=== PATIENT | female | born 1955 | race Caucasian/White ===

== ENCOUNTER 2018-05-17 23:58 | Emergency (ER) | payer SELFPAY ==
[2018-05-18] MEDS ORDERED: Ondansetron PF 4 MG/2 ML Vial ONE (00:34)
[2018-05-18] MEDS ORDERED: Morphine 4 MG/ML VIAL ONE (00:34)
[2018-05-18] MEDS ORDERED: Ketorolac Tromethamine 30 MG/ML VIAL ONE (00:45)
[2018-05-18 00:53] LABS: #Basophils 0.1 thou/uL (0.0-0.2); #Eosinphils 0.2 thou/uL (0.0-0.7); #Lymphocytes 1.7 thou/uL (1.20-3.40); #Monocytes 0.3 thou/uL (0.11-0.59); #Neutrophils 2.2 thou/uL (1.40-6.50); %Basophils 1.4 % (0.0-1.0); %Eosinophils 3.4 % (0.0-10.0); %Lymphocytes 38.2 % (21.0-51.0); %Monocytes 7.2 % (0.0-10.0); %Neutrophils 49.8 % (42.0-75.0); Hemoglobin 14.9 g/dL (12.0-16.0); Mean Corpuscular Hemoglobin 32.7 pg (27.0-31.0); Mean Corpuscular Volume 99.1 fL (78.0-98.0); Mean Platelet Volume 8.1 fL (7.4-10.4); Platelet Count 233 thou/uL (130-400); RBC Distribution Width 11.8 % (11.5-14.5); Red Blood Cell (RBC) Count 4.54 mill/uL (4.20-5.40); White Blood Cell (WBC) Count 4.5 thou/uL (4.8-10.8)
[2018-05-18 01:13] LABS: ALT (SGPT) 13 U/L (8-55); AST (SGOT) 19 U/L (5-34); Albumin 5.2 g/dL (3.4-4.8); Alkaline Phosphatase 105 U/L (40-150); Anion Gap 14 mmol/L (10-20); BUN (Urea Nitrogen) 17 mg/dL (9.8-20.1); Bilirubin, Total 0.2 mg/dL (0.2-1.2); CK (CPK) 84 U/L (29-168); Calc. Creatinine Clearance 0 mL/min (70-130); Calcium 10.1 mg/dL (7.8-10.44); Carbon Dioxide 27 mmol/L (23-31); Chloride 106 mmol/L (98-107); Estimated GFR-MDRD 76; Globulin 3.2 g/dL (2.4-3.5); Glucose 94 mg/dL (80-115); Lipase 18 U/L (8-78); Potassium 4.3 mmol/L (3.5-5.1); Protein, Total 8.4 g/dL (6.0-8.3); Sodium 143 mmol/L (136-145)
[2018-05-18 01:17] LABS: CKMB 2.7 ng/mL (0-6.6); Troponin I Less than 0.010 ng/mL (< 0.028)
[2018-05-18 01:22] LABS: Bilirubin Negative (Negative); Blood, Urine Negative (Negative); Clarity CLEAR (Clear); Glucose, Urine (Dipstick) Negative (Negative); Leukocyte Negative (Negative); Nitrite Negative (Negative); Protein, Urine (Dipstick) Negative (Neg-Trace); Specific Gravity, Urine 1.009 (1.002-1.036); Urobilinogen 0.2 mg/dL (0.2-1.0)
[2018-05-18] MEDS ORDERED: Dicyclomine 20 MG TAB ONE (01:36)
--- NOTE | 2018-05-18 07:40 | CT ---
ABDOMEN CT WITHOUT CONTRAST PELVIC CT WITHOUT CONTRAST: Date: 05/18/18 HISTORY: Stabbing abdominal pain since 7:30 this evening. Pain radiates into the lower back and right groin. COMPARISON: None. FINDINGS: ABDOMEN CT: Minimal atelectasis and scarring in the lingula. Heart size is within normal limits. No pericardial e ffusion. Visualized aorta has a normal caliber. There is mild atherosclerosis of the infrarenal abdom inal aorta. Gallbladder is grossly unremarkable. 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 Limited evaluation of the solid organs by the lack of IV contrast. Grossly, no solid organ abnormalit y. No gastrohepatic, retrocrural, or periportal lymphadenopathy. Decreased intra-abdominal fat limits evaluation for inflammatory change. No definite mesenteric mass, lymphadenopathy, free air, or free fluid. Limited evaluation of the alimentary canal by the lack of oral contrast. Gastric mucosa is unremarkab le. Duodenum and multiple small bowel loops are noted. Some of the small bowel loops are borderline p rominent and are fluid-filled. The possibility of an ileus or partial obstructive process cannot be c ompletely excluded. Clinical correlation is essential. The ileocecal junction appears to be grossly u nremarkable. There is some fecalization of the distal ileum which is nonspecific. Findings may be due to incompetent ileocecal valve. Appendix is difficult to appreciate on the examination. No obvious i nflammation at the cecal apex. There is a significant amount of fecal material throughout the colon. Correlate clinically for constipation. Bilaterally, no perinephric fat stranding or nephrolithiasis. There is mild dilatation of the right i ntrarenal collecting system. There is no evidence of an obstructing calculus in the right intrarenal collecting system. The visualized right ureter is also normal in caliber. No definite hydroureter, pe riureteral fat stranding, or ureterolithiasis. No definite calcifications along the expected course o f the right ureter. PELVIC CT: Urinary bladder is unremarkable. No obvious calcifications within the urinary bladder. Hysterectomy c hanges are noted. No pelvic mass, lymphadenopathy, free air, or free fluid. No lytic or blastic lesions in the osseous structures. IMPRESSION: 1. No evidence of an obstructing calculus. There appears to be mild right-sided hydronephrosis. Cordell elate with urinalysis. Consider nonemergent IVP for further evaluation. 2. Slightly prominent small bowel loops, predominantly in the left hemiabdomen. Correlate for early or partial obstructive process. 3. Significant amount of fecal material throughout the colon. Correlate for constipation. POS: CRUZITO
--- NOTE | 2018-05-18 07:47 | RAD ---
PA AND LATERAL CHEST: Date: 05/18/18 INDICATION: Chest pain. COMPARISON: None. FINDINGS: Lungs are hyperinflated, but clear. Heart size is mildly prominent. Pulmonary vasculature is within n ormal limits. No pleural effusion or pneumothorax evident. No acute osseous abnormality is evident. IMPRESSION: Hyperinflation and mild cardiomegaly. No air space consolidation evident. POS: BH
--- NOTE | 2018-05-30 16:11 | EKG ---
Test Reason : ABD PAIN Blood Pressure : / mmHG Vent. Rate : 068 BPM Atrial Rate : 068 BPM P-R Int : 138 ms QRS Dur : 080 ms QT Int : 420 ms P-R-T Axes : 094 060 067 degrees QTc Int : 446 ms Normal sinus rhythm Normal ECG Confirmed by PIYUSH SONG ([id number]), art editor JAELYN MCGOWAN ([id number] on 05/30/2018 4:10:47 PM Referred By: Confirmed By:PIYUSH SONG
== END 2018-05-18 01:57 | disposition home or self-care (01) ==
LOC: ERS 23:58
DX: R10.9 Unspecified abdominal pain (principal); Z71.6 Tobacco abuse counseling; G43.909 Migraine, unspecified, not intractable, without status migrainosus; F41.9 Anxiety disorder, unspecified; F17.210 Nicotine dependence, cigarettes, uncomplicated; Z79.899 Other long term (current) drug therapy
CPT/HCPCS: 71046; 74176; 80053; 81003; 82550; 82553; 83690; 84484; 85025; 93005; 96374; 96375; J1885; J2270; J2405

== ENCOUNTER 2020-06-02 09:22 | Emergency (ER) | payer MEDICARE ==
--- NOTE | 2020-06-02 10:28 | RAD ---
Exam:Left knee 4 HISTORY: Pain and injury. Fall. COMPARISON: None FINDINGS: No joint effusion. No fracture or malalignment. Joint spaces are preserved. IMPRESSION: No posttraumatic change.
--- NOTE | 2020-06-02 10:29 | RAD ---
XR Ankle Lt 3 View STANDARD INDICATION: Mechanical fall with left ankle injury COMPARISON: None. FINDINGS: Bones: Small radiopaque densities seen inferior to the lateral malleolus suspicious for soft tissue c alcifications from remote injury rather than acute fracture. There is some enthesopathic change off the posterior lateral malleolus. Ankle mortise: Symmetric. Talar Dome: Intact. Subtalar joint: Normal. Visualized hindfoot: Normal. Periarticular soft tissues: Normal. IMPRESSION: 1. No acute fracture or subluxation demonstrated. 2. Enthesopathic change off the posterior lateral malleolus with small calcific densities seen inferi or to the lateral malleus suspicious for sequela of prior remote soft tissue injury.
--- NOTE | 2020-06-02 10:30 | RAD ---
Exam:Right foot 3 view HISTORY: Fall. Pain. COMPARISON: None FINDINGS: This is evidence of previous internal fixation of the right ankle. No perihardware lucency. Joint spaces are preserved. Lisfranc alignment is maintained. There is a nondisplaced fracture involving the proximal fifth metatarsal, best appreciated on the lat eral projection. Correlate for point tenderness. IMPRESSION: Fracture involving the proximal fifth metatarsal.
--- NOTE | 2020-06-02 10:31 | RAD ---
XR Foot Lt 3 View STANDARD INDICATION: Fall with left foot pain COMPARISON: None. FINDINGS: Bones: There are mildly displaced, mildly angulated metatarsal neck fractures involving the second, t hird and fourth digit. No additional fractures evident. Joints: Joints spaces appear preserved. Lisfranc alignment: Lisfranc alignment appears within normal limits. Soft tissues: There is soft tissue swelling of the left forefoot. IMPRESSION: Mildly displaced, mildly angulated comminuted metatarsal neck fractures of the second, th ird and fourth digit.
[2020-06-02] MEDS ORDERED: HYDROcodone/Acetaminophen 5/325 mg Tablet ONE (12:43)
== END 2020-06-02 13:07 | disposition home or self-care (01) ==
LOC: ERS 09:22
DX: S92.322A Displaced fracture of second metatarsal bone, left foot, initial encounter for closed fracture (principal); S92.332A Displaced fracture of third metatarsal bone, left foot, initial encounter for closed fracture; S92.342A Displaced fracture of fourth metatarsal bone, left foot, initial encounter for closed fracture; S92.351A Displaced fracture of fifth metatarsal bone, right foot, initial encounter for closed fracture; G43.909 Migraine, unspecified, not intractable, without status migrainosus; F41.9 Anxiety disorder, unspecified; F17.210 Nicotine dependence, cigarettes, uncomplicated; W01.0XXA Fall on same level from slipping, tripping and stumbling without subsequent striking against object, initial encounter; Z79.899 Other long term (current) drug therapy

== ENCOUNTER 2021-05-12 12:02 | Outpatient (CLI) | payer MEDICARE | END 2021-05-12 12:03 | disposition home or self-care (01) | LOC: BICMAMMO 12:02 | PROVIDERS: ATTEND Family Medicine | DX: Z12.31 Encounter for screening mammogram for malignant neoplasm of breast (principal); Z80.3 Family history of malignant neoplasm of breast | CPT/HCPCS: 77063; 77067 ==

== ENCOUNTER 2023-05-07 13:40 | Outpatient (CLI) | payer MEDICARE | END 2023-05-07 13:41 | disposition home or self-care (01) | LOC: BICMAMMO 13:40 | PROVIDERS: ATTEND Registered Nurse | DX: Z12.31 Encounter for screening mammogram for malignant neoplasm of breast (principal); M81.0 Age-related osteoporosis without current pathological fracture; Z80.3 Family history of malignant neoplasm of breast; Z78.0 Asymptomatic menopausal state; N64.89 Other specified disorders of breast | CPT/HCPCS: 77063; 77067; 77080 ==

== ENCOUNTER 2023-05-13 14:02 | Outpatient (CLI) | payer MEDICARE | END 2023-05-13 14:03 | disposition home or self-care (01) | LOC: BICMAMMO 14:02 | PROVIDERS: ATTEND Registered Nurse | DX: N64.89 Other specified disorders of breast (principal) | CPT/HCPCS: 77065; G0279 ==

== ENCOUNTER 2023-06-24 14:19 | Outpatient (CLI) | payer MEDICARE | END 2023-06-24 14:20 | disposition home or self-care (01) | LOC: BICCT 14:19 | PROVIDERS: ATTEND Registered Nurse | DX: Z12.2 Encounter for screening for malignant neoplasm of respiratory organs (principal); F17.210 Nicotine dependence, cigarettes, uncomplicated; J18.0 Bronchopneumonia, unspecified organism; J98.4 Other disorders of lung | CPT/HCPCS: 71271 ==

== ENCOUNTER 2024-06-29 13:57 | Outpatient (CLI) | payer MEDICARE | END 2024-06-29 13:58 | disposition home or self-care (01) | LOC: BICCT 13:57 | PROVIDERS: ATTEND Registered Nurse | DX: Z12.2 Encounter for screening for malignant neoplasm of respiratory organs (principal); F17.210 Nicotine dependence, cigarettes, uncomplicated; M85.9 Disorder of bone density and structure, unspecified | CPT/HCPCS: 71271 ==

== ENCOUNTER 2025-07-16 14:25 | Outpatient (CLI) | payer MEDICARE | END 2025-07-16 14:26 | disposition home or self-care (01) | LOC: SCSBT 14:25 | PROVIDERS: ATTEND Family Medicine | DX: Z13.820 Encounter for screening for osteoporosis (principal); M81.0 Age-related osteoporosis without current pathological fracture | CPT/HCPCS: 77080 ==